=== PATIENT | female | born 1980 | race Caucasian/White ===

== ENCOUNTER 2017-04-06 18:23 | Emergency (ER) | payer OTHER ==
[2017-04-06] MEDS ORDERED: BIRTH CONTROL (18:53)
== END 2017-04-06 20:14 ==
LOC: EDMED 18:23
DX: S61.211A Laceration without foreign body of left index finger without damage to nail, initial encounter (principal); W27.1XXA Contact with garden tool, initial encounter; Y93.H2 Activity, gardening and landscaping; Y92.017 Garden or yard in single-family (private) house as the place of occurrence of the external cause; Y99.8 Other external cause status